=== PATIENT | male | born 1955 ===

== ENCOUNTER 2017-12-15 09:53 | Inpatient (IN) | payer OTHER, MEDICARE ==
[~2017-12-15] VITALS: Ht 162.6 cm; Wt 81.6 kg
[2017-12-22] VITALS (12 sets, daily range): BP systolic 111–144; BP diastolic 70–86
[2017-12-22] MEDS ORDERED: PROGRAF5 MG PO (09:17)
[2017-12-22] MEDS ORDERED: AMLODIPINE BESYL5 MG ORAL (09:17)
[2017-12-22] MEDS ORDERED: ZETIA10 MG ORAL (09:17)
[2017-12-22] MEDS ORDERED: COZAAR50 MG ORAL (09:17)
[2017-12-22] MEDS ORDERED: OMEPRAZOLE20 M3 ORAL (09:17)
[2017-12-22] MEDS ORDERED: TAMSULOSIN HCL0.4 MG ORAL (09:17)
[2017-12-22] MEDS ORDERED: TRAMADOL HCL50 MG ORAL (09:17)
[2017-12-22] MEDS ORDERED: VITAMIN D250000 UNI1 ORAL (09:17)
[2017-12-22] MEDS ORDERED: ALBUTEROL SULF8.5 GM INH (09:17)
--- NOTE | 2017-12-22 10:45 | Diagnostic Imaging Report ---
Indication: Pain Technique: 2 views of the left hip Comparison: none Findings: There is central loss of the joint space. There is subchondral sclerosis and subchondral cysts primarily on the femoral side of the hip joint, although a few subchondral cysts are also seen on the acetabular side. No acute fractures. No dislocations. There is a right hip prosthesis incidentally noted Impression: Degenerative changes, as described No acute process
[2017-12-22] MEDS ORDERED: Bacitracin 50000 Units Vial ONE ×2 (13:27→13:28)
[2017-12-22] MEDS ORDERED: NeoSporin Gu Irrig 1ml Amp IRRIG ONE ×2 (13:27→13:28)
[2017-12-22] MEDS ORDERED: NS Irrig 1000ml ONE (13:30)
[2017-12-22] MEDS ORDERED: Sterile Water Irrig 1000ml IRRIG ONE (13:30)
[2017-12-22] MEDS ORDERED: LR 1000ml ONE (13:30)
[2017-12-22] MEDS ORDERED: Tranexamic Acid 1,000 MG in NS 65 ML IVPB SCH (13:31)
[2017-12-22] MEDS ORDERED: cloNIDine 1000mcg/10ml inj ONE (13:35)
[2017-12-22] MEDS ORDERED: Bupivacaine 0.5% Inj 30 ml vial INJ ONE (13:36)
[2017-12-22] MEDS ORDERED: Lidocaine 1% MPF 10mg/ml 5ml ONE (13:40)
[2017-12-22] MEDS ORDERED: EPINEPHrine 1mg/1ml Amp ONE (13:40)
[2017-12-22] MEDS ORDERED: Dexamethasone 4mg/ml vial ONE (13:40)
[2017-12-22] MEDS ORDERED: Sodium Chloride 10ml vial INJ ONE (13:40)
[2017-12-22] MEDS ORDERED: Propofol 200mg/20ml IV ONE (13:41)
[2017-12-22] MEDS ORDERED: Alfentanil 2ml Inj ONE (13:42)
--- NOTE | 2017-12-22 13:53 | Pre-Procedure Note/Attestation ---
Pre-Procedure Note/Attestation Complete Prior to Procedure Planned Procedure: left Procedure Narrative: left hip replacement Indications for Procedure Pre-Operative Diagnosis: left hip arthritis Attestation I attest that I discussed the nature of the procedure; its benefits; risks and complications; and alternatives (and the risks and benefits of such alternatives ), prior to the procedure, with the patient (or the patient's legal customer account representative). I attest that, if there was a reasonable possibility of needing a blood transfusion, the patient (or the patient's legal customer account representative) was given the [facility] standardized written summary, pursuant to the Florentin Alberto Blood Safety Act ([place] Health and Safety Code # 1645, as amended). I attest that I re-evaluated the patient just prior to the surgery and that there has been no change in the patient's H&P, except as documented below: William Helms MD Dec 22, 2017 13:53
--- NOTE | 2017-12-22 14:07 | Brief Operative Note ---
Immediate Post Operative Note Operative Note Pre-op Diagnosis: left hip arthritis Procedure: left hip oa Post-op Diagnosis: left hip repalcement Post-op Diagnosis: same as pre-op Findings: consistent w/pre-op dx studies Surgeon: leo Anesthesia: general Specimen: yes Complications: none Condition: stable Fluids: y Estimated Blood Loss: none Drains: none Implant(s) used?: Yes William Helms MD Dec 22, 2017 14:07
[2017-12-22] MEDS ORDERED: LR 1000ml 1,000 ML IVLG SCH (14:16)
[2017-12-22] MEDS ORDERED: Meperidine 50mg/ml Inj(FOR RIGORS ONLY) IVP PRN (14:30)
[2017-12-22] MEDS ORDERED: HYDROcodone/Acetamin 7.5/325 tab ORAL PRN (14:30)
[2017-12-22] MEDS ORDERED: Metoclopramide 10mg/2ml Inj IVP PRN (14:30)
[2017-12-22] MEDS ORDERED: DiphenhydrAMINE 50mg/ml Inj IVP PRN (14:30)
[2017-12-22] MEDS ORDERED: Hydromorphone 0.5mg/0.5ml inj IVP PRN (14:30)
[2017-12-22] MEDS ORDERED: Atropine Sulfate 0.4mg/ml inj IVP PRN (14:30)
[2017-12-22] MEDS ORDERED: Midazolam 2mg/2ml Inj IVP PRN (14:30)
[2017-12-22] MEDS ORDERED: oxyCODONE HCL/Acetaminophen 5/325mg ORAL PRN (14:30)
[2017-12-22] MEDS ORDERED: Labetalol 5mg/ml 20ml vial IV PRN (14:30)
[2017-12-22] MEDS ORDERED: Norco 5mg/325mg tab ORAL PRN (14:30)
[2017-12-22] MEDS ORDERED: fentaNYL 100 mcg/2 mL IV PRN (14:30)
[2017-12-22] MEDS ORDERED: LORazepam Inj 2mg/ml 1ml IV PRN (14:30)
--- NOTE | 2017-12-22 14:38 | Anethesia Preoperative Eval ---
Anesthesia Pre-op PMH/ROS General Date of Evaluation: Dec 22, 2017 Time of Evaluation: 13:34 Anesthesiologist: Damaris ASA Score: ASA 3 Mallampati Score Class I : Soft palate, uvula, fauces, pillars visible Class II: Soft palate, uvula, fauces visible Class III: Soft palate, base of uvula visible Class IV: Only hard plate visible Mallampati Classification: Class II Surgeon: Scooter Anesthesia History: none Family History: no anesthesia problems Allergies: Coded Allergies: No Known Allergies (Unverified , 12/10/17) Medications: see eMAR Past Medical History Cardiovascular: Reports: HTN, other - HL Gastrointestinal/Genitourinary: Reports: GERD, CRI - Stage 3, Renal Tx, ESRD, other - Liver Tx Other: obesity - BMI 32 PSxH Narrative: Renal, Liver TX Anesthesia Pre-op Phys. Exam Physician Exam Last Vital Signs Date Time Temp Pulse Resp B/P (MAP) Pulse Ox O2 Delivery O2 Flow Rate FiO2 12/22/17 09:20 Room Air 12/22/17 09:09 98.5 69 18 111/71 (84) 98 98.5 Constitutional: NAD Neurologic: CN 2-12 intact Cardiovascular: RRR Respiratory: CTA Gastrointestinal: S/NT/ND Airway Exam Mallampati Score: Class II MO: full ROM: full Teeth: intact Anesthesia Pre-op A/P Risk Assessment & Plan Assessment: ASA 3 Plan: GA, Spinal, SED Status Change Before Surgery: No Pre-Antibiotics Dru Grams Ancef IV Given Within 1 Hr of Incision: Yes Time Given: 14:01 Bo Ocampo MD Dec 22, 2017 14:38
--- NOTE | 2017-12-22 14:40 | Immediate Post-Op Evaluation ---
Immediate Post-Op Evalulation Immediate Post-Op Evalulation Procedure: L Total Hip Arthroplasty Date of Evaluation: Dec 22, 2017 Time of Evaluation: 16:02 IV Fluids: 1100 LR Blood Products: 0 Estimated Blood Loss: 50 Urinary Output: 0 Blood Pressure Systolic: 143 Blood Pressure Diastolic: 80 Pulse Rate: 64 Respiratory Rate: 16 O2 Sat by Pulse Oximetry: 100 Temperature (Fahrenheit): 97.5 Pain Score (1-10): 0 Nausea: No Vomiting: No Complications 0 Patient Status: awake, reacts, patent, none Hydration Status: adequate Dru Grams Ancef IV Given Within 1 Hr of Incision: Yes Time Given: 14:01 Bo Ocampo MD Dec 22, 2017 14:40
--- NOTE | 2017-12-22 16:28 | Diagnostic Imaging Report ---
Indication: Pain, intraoperative Technique: One view of the pelvis Comparison: 5 1/2 hours earlier Findings: Interim placement of left hip arthroplasty prosthesis. This appears well aligned. Impression: Intraoperative imaging, as described
[2017-12-22] MEDS ORDERED: oxyCODONE 5mg IR tab ORAL PRN (18:15)
[2017-12-22] MEDS ORDERED: Chloraseptic Spray 20mL Bottle ORAL PRN (18:15)
[2017-12-22] MEDS: D5 1/2NS w/KCl 20mEq 1,000 ML IV SCH (18:25)
--- NOTE | 2017-12-22 18:54 | Cardiology Progress Note ---
Assessment/Plan Assessment/Plan [id number] s/p liever tx s/[ kidney tx reanal isnuf stage 3 avn hip htn hyperlitid resume anti rejection med pain management watch urine output Objective Last 24 Hour Vital Signs Date Time Temp Pulse Resp B/P (MAP) Pulse Ox O2 Delivery O2 Flow Rate FiO2 12/22/17 17:00 Nasal Cannula 3.0 12/22/17 16:44 98.2 60 14 144/79 100 Nasal Cannula 3 98.2 12/22/17 16:35 63 18 132/75 100 Nasal Cannula 3 12/22/17 16:20 58 15 134/76 100 Nasal Cannula 3 12/22/17 16:10 57 13 137/70 100 Nasal Cannula 3 12/22/17 16:00 61 17 142/76 100 Nasal Cannula 3 12/22/17 15:55 60 24 144/79 100 Simple Mask 6 12/22/17 15:51 97.5 65 16 143/86 100 Simple Mask 6 97.5 12/22/17 15:51 207.5 64 16 100 12/22/17 09:20 Room Air 12/22/17 09:09 98.5 69 18 111/71 (84) 98 98.5 Kemal Pretty MD Dec 22, 2017 18:54
[2017-12-22] MEDS: HYDROmorphone 1mg/ml Carpuject IVP PRN ×2 (21:17→23:20)
[2017-12-22] MEDS: ceFAZolin sod 1 GM in D5W 55 ML IV SCH (21:20)
[2017-12-22] MEDS: Tamsulosin 0.4mg cap ORAL SCH (21:20)
[2017-12-22] MEDS: traMADol 50mg tab ORAL SCH (22:03)
--- NOTE | 2017-12-22 22:30 | Consultation ---
DATE OF CONSULTATION: 12/22/2017 CONSULTING PHYSICIAN: Manohar Christiansen M.D. REFERRING PHYSICIAN: William Helms M.D. REASON FOR CONSULTATION: Acute pain consult. Dear Dr. Helms, Thank you kindly for consulting me to evaluate and render an opinion as to how to proceed in the management of the patient's acute postoperative left hip pain after left total hip arthroplasty today. The patient is a 62-year-old gentleman, who I saw at the bedside with his and children. I discussed the case with yourself, Dr. Helms, who consulted me to help with his pain control. The patient has multiple medical issues, which will be managed by Dr. Pretty. His medical issues include chronic renal insufficiency and previous liver failure status post liver transplant. I performed detailed history and physical examination. I reviewed the medical record in detail. I spent over 75 minutes in consultation with an additional 30 minutes in medical record review. PAST MEDICAL HISTORY: 1. Acute postoperative left hip pain, status post left total hip arthroplasty by Dr. William Helms in December 2017. 2. Avascular necrosis. 3. Hypertension. 4. Chronic renal insufficiency. 5. Obesity. 6. GERD. PAST SURGICAL HISTORY: Liver transplant. ALLERGIES: No known drug allergies. MEDICATIONS: At home, Norvasc, Zetia, Flonase, Neurontin, Cozaar, CellCept, Prilosec, Zocor, Prograf, prednisone. SOCIAL HISTORY: The patient is accompanied at the bedside by his . He has 4 children. He denies alcohol, tobacco, or marijuana usage. REVIEW OF SYSTEMS: Per Dr. Pretty. PHYSICAL EXAMINATION: VITAL SIGNS: Age 62, height 5 feet 4 inches, weight 181 pounds, body-mass index 31. Vital signs in the medical record. HEENT: Nasal cannula O2 in place. NEUROLOGIC: Oriented x3. Moving all extremities x4. CARDIOPULMONARY: Detailed exam per Dr. Pretty. ABDOMEN: Detailed exam per Dr. Pretty with liver and kidney transplant scars well healed. LABORATORY STUDIES: In the medical record with normal LFT functions, AST, and ALT. Preoperative creatinine was 2.3. A 12-lead EKG shows heart rate 72. IMPRESSION: 1. Acute postoperative left hip pain, status post left total hip arthroplasty by Dr. William Helms in December 2017. 2. Avascular necrosis. 3. Hypertension. 4. Chronic renal insufficiency. 5. Obesity. 6. GERD. I took a detailed history and physical at the patient's bedside and reviewed the medical record. With his history of chronic renal insufficiency and previous liver transplant, the patient is concerned about renal toxic agents. The patient does state that he has been using Neurontin 100 mg b.i.d., which I will restart. The patient also has been using tramadol although this medication has been poorly effective for pain, apparently it is tolerable with his hepatorenal problems, so I will start him on tramadol 50 mg [id number] for baseline analgesia. I have selected agents that will be metabolized by the liver since he has more kidney dysfunction, versus liver dysfunction. I have chosen oxycodone. I will start with instant-release dosing 5 mg. This agent will avoid using acetaminophen. I will see how the 5 mg dose works on a p.r.n. basis every 3 hours p.r.n. for mild pain. I have ordered and I will start with a low dose of Dilaudid. Dilaudid is hepatically metabolized versus morphine which is metabolized predominantly by the kidneys. I will start with Dilaudid dose of 0.5 mg intravenously every two hours p.r.n. for moderate pain. I would hold off on other doses at this time. I will defer anticoagulation and other medical illness issues to Dr. Pretty in this complicated patient. Incentive spirometer is placed at the bedside and I will encourage aggressive usage. The patient is well experienced in incentive spirometer usage due to his multiple previous surgeries. Manohar Christiansen M.D. DR: Omari JOB#: [id number] CC:
[2017-12-23] VITALS: BP 136/72
[2017-12-23] MEDS: HYDROmorphone 1mg/ml Carpuject IVP PRN (01:47)
[2017-12-23] MEDS ORDERED: oxyCODONE 5mg IR tab ORAL PRN (02:45)
--- NOTE | 2017-12-23 03:30 | Consultation ---
DATE OF CONSULTATION: 12/22/2017 CARDIOLOGY CONSULTATION CONSULTING PHYSICIAN: Kemal Pretty M.D. REFERRING PHYSICIAN: William Helms M.D. REASON FOR REFERRAL: Postoperative medical care. HISTORY OF PRESENT ILLNESS: This is an elderly gentleman who I saw for the first time in the office on Wednesday for preoperative cardiac consultation. The patient has a history of liver and kidney transplant, is followed by Dr. Bernice Asher who has recently adjusted the dose of his medications at [facility]. The patient is admitted and underwent hip replacement by Dr. Deras today and his postoperative course so far has been intact, although he was not able to get a Jerez catheter in because of the narrow meatus as I understand it. The patient has arrived in the floor in the past hour and half or so from both the nurses. Intraoperative data was reviewed. The patient's blood pressure lowest is in the mid 90s and the highest in the 140s or so with diastolic in the mid 50s to highest of low 80s. The patient denies any chest pain or pressure. There is no shortness of breath. No PND. No orthopnea. He does have symptom of sore throat. No palpitations and no dizziness at this time. PAST MEDICAL HISTORY: Positive for history of pulmonic stenosis in 2006 and he has had a history of right heart cath. After that, he has history of liver transplant. He has history of systemic hypertension, early satiety, and chronic kidney disease, stage 3 after a renal transplant, he has donor kidney transplantation with now stage 3 chronic kidney disease. ALLERGIES: He is not allergic to any medications. FAMILY HISTORY: Questionable for premature coronary disease. SOCIAL HISTORY: Never smoked. No alcohol. No drugs. He is , four kids. Worked as a ms sql developer. REVIEW OF SYSTEMS: GASTROINTESTINAL: Denies any nausea or vomiting. GENITOURINARY: He does not have a Jerez catheter. No discomfort on urination. PULMONARY: Negative. CONSTITUTIONAL: Negative. NEUROLOGIC: He has some numbness and tingling sensation in his left leg. PHYSICAL EXAMINATION: GENERAL: Shows to be elderly gentleman, in no respiratory distress. HEENT: Unremarkable. NECK: Supple. No jugular venous distention. He is able to lay flat, approximately 10 degrees head of bed elevation without any discomfort. LUNGS: Appear to be clear. CARDIAC: Regular rate and rhythm. Systolic murmur is noted. No heaves, thrills, gallops or rubs are noted. ABDOMEN: Soft and nontender. Positive bowel sounds. EXTREMITIES: He has pneumatic compression stockings on both sides. His right foot seems to be moving okay. He is weaker, but is able to move, he just recovered from anesthesia. LABORATORY AND DIAGNOSTIC DATA: His laboratory values of preoperative are as mentioned in the preoperative section with his INR of 1. Sodium 138, potassium 4.6, chloride 107, bicarbonate 21, BUN of 37, and creatinine 2.3 and his white count 6.3, hemoglobin 12.2, and platelet count of 166. Prograf level of 2.9. Urinalysis, 2+ leukocyte esterase, otherwise unremarkable. The patient was seen and medically cleared by his bow repairer custom in transplant service at [facility] recently with adjustment of his medications as noted. His preoperative EKG previously showed somewhat sinus rhythm. No ST or T-wave abnormalities. He did have an echocardiogram in the office that showed a pulmonic valve stenosis. The ejection fraction of left ventricle was 60%-65%. Right ventricular systolic pressure was estimated at 31 with the pulmonary artery systolic pressure estimated 11 mmHg. His recent myocardial perfusion imaging that was done yesterday was negative at [facility] and his chest x-ray was also negative preoperatively. ASSESSMENT AND PLAN: 1. Status post left total hip replacement. 2. Pulmonic stenosis, mild, unaffected of the right ventricle. 3. History of renal transplantation, now with residual stage 3 kidney failure. 4. History of liver transplant for cryptogenic cirrhosis. 5. Avascular necrosis of the left hip, now undergone hip replacement. 6. Hypertension. 7. Hyperlipidemia. Dr. Deras, this patient was seen in cardiac consultation. Postoperatively, he is doing well. He had an issue with the inability to have a Jerez catheter placed. His postvoid residuals will need to be checked. Hopefully, he would be able to urinate and not have much in terms of issues with that. He will be monitored in postoperative care. Pain management has seen the patient, and usual medications for transplant will be resumed. Prograf as well as CellCept will be resumed. I did discuss with the promotions coordinator, nephrology clinic this evening. No excessive measures of medications need to be undertaken, his usual medications will be resumed. His blood pressure needs to be followed and his medications will be administered based on the blood pressure readings to avoid hypotension. DVT prophylaxis with the use of pneumatic compression stockings and low-molecular weight heparin as approved by Dr. Deras. He has already received and started his diet already and out of bed allowed by Dr. Deras as well. Kemal Pretty M.D. DR: LAVERN JOB#: [id number] CC:
[2017-12-23] MEDS: HYDROmorphone 1mg/ml Carpuject SUBQ PRN ×3 (03:59→10:30)
[2017-12-23 04:00] VITALS: BP 126/73
[2017-12-23] MEDS: traMADol 50mg tab ORAL SCH ×3 (06:02→21:15)
[2017-12-23] MEDS: ceFAZolin sod 1 GM in D5W 55 ML IV SCH (06:03)
[2017-12-23 08:00] VITALS: BP 122/71
[2017-12-23] MEDS: Losartan 50mg tab ORAL SCH (08:16)
[2017-12-23] MEDS: Mycophenolate 250mg cap ORAL SCH ×2 (08:17→18:01)
[2017-12-23] MEDS: Paricalcitol 1mcg cap ORAL SCH (08:17)
[2017-12-23] MEDS: D5 1/2NS w/KCl 20mEq 1,000 ML IV SCH ×2 (08:18→21:16)
--- NOTE | 2017-12-23 08:29 | Diagnostic Imaging Report ---
Indication: Postoperative, status post bilateral hip replacement Technique: One view of the pelvis Comparison: One hour earlier Findings: Patient is postoperative left hip hemiarthroplasty, with overlying skin amina. Retained air from the surgical wound is seen within the soft tissues. Prosthesis appears well aligned. There is a right prosthesis again demonstrated Impression: Postoperative left hip, as described. No unusual features
[2017-12-23 09:33] LABS: BASOPHILS % (AUTO) 0.5 % (0.0-2.0); EOSINOPHILS % (AUTO) 0.1 % (0.0-3.0); HEMATOCRIT 35.4 % (42.0-52.0); HEMOGLOBIN 11.9 G/DL (14.2-18.0); LYMPHOCYTES % (AUTO) 10.3 % (20.0-45.0); MEAN CORPUSCULAR VOLUME 92 FL (80-99); MONOCYTES % (AUTO) 7.3 % (1.0-10.0); NEUTROPHILS % (AUTO) 81.8 % (45.0-75.0); PLATELET COUNT 239 K/UL (150-450); RED BLOOD COUNT 3.85 M/UL (4.70-6.10); RED CELL DISTRIBUTION WIDTH 12.4 % (11.6-14.8); WHITE BLOOD COUNT 14.8 K/UL (4.8-10.8)
[2017-12-23 09:56] LABS: ANION GAP 14 mmol/L (5-15); BLOOD UREA NITROGEN 39 mg/dL (7-18); CALCIUM 8.9 MG/DL (8.5-10.1); CARBON DIOXIDE 18 MMOL/L (21-32); CHLORIDE 105 MMOL/L (98-107); CREATININE 2.4 MG/DL (0.55-1.30); POTASSIUM 4.7 MMOL/L (3.5-5.1); SODIUM 137 MMOL/L (136-145)
[2017-12-23] MEDS ORDERED: HYDROmorphone 1mg/ml Carpuject SUBQ PRN (10:45)
[2017-12-23] MEDS ORDERED: [UNRECOGNIZED DRUG - OTHER] IV PRN (10:45)
[2017-12-23] MEDS ORDERED: PCA Education Pamphlet MISC ONE (10:45)
[2017-12-23] MEDS: Enoxaparin 40mg Inj SUBQ SCH (11:29)
[2017-12-23 12:00] VITALS: BP 137/72
--- NOTE | 2017-12-23 12:52 | 48 Hour Post Anesthesia Eval ---
Post Anesthesia Evaluation Procedure: L Total Hip Arthroplasty Date of Evaluation: Dec 23, 2017 Time of Evaluation: 12:51 Blood Pressure Systolic: 124 0: 76 Pulse Rate: 68 Respiratory Rate: 20 Temperature (Fahrenheit): 97.5 O2 Sat by Pulse Oximetry: 98 Airway: patent Nausea: No Vomiting: No Pain Intensity: 3 Hydration Status: adequate Cardiopulmonary Status: stable Mental Status/LOC: patient returned to baseline Follow-up Care/Observations: n/a Post-Anesthesia Complications: none Follow-up care needed: N/A Zaheer Peacock MD Dec 23, 2017 12:52
[2017-12-23 16:00] VITALS: BP 109/65
--- NOTE | 2017-12-23 18:48 | Cardiology Progress Note ---
Assessment/Plan Assessment/Plan 1. Status post left total hip replacement. 2. Pulmonic stenosis, mild, unaffected right ventricle. 3. History of renal transplantation, now with residual stage 3 kidney failure. 4. History of liver transplant for cryptogenic cirrhosis. 5. Avascular necrosis of the left hip, now undergone hip replacement. 6. Hypertension. 7. Hyperlipidemia doing well walked on antirejection med s bp seem fine dvt ppx lmwh home soon . Subjective Cardiovascular: Denies: chest pain, lightheadedness, palpitations Respiratory: Denies: shortness of breath Gastrointestinal/Abdominal: Denies: abdominal pain Genitourinary: Denies: burning Objective Last 24 Hour Vital Signs Date Time Temp Pulse Resp B/P (MAP) Pulse Ox O2 Delivery O2 Flow Rate FiO2 12/23/17 14:36 97.5 12/23/17 12:52 207.5 68 20 98 12/23/17 11:55 97.5 12/23/17 11:55 97.5 12/23/17 11:25 97.7 12/23/17 10:30 97.7 12/23/17 09:00 Room Air 12/23/17 08:48 97.7 12/23/17 08:18 97.7 12/23/17 08:17 83 122/71 12/23/17 08:16 122/71 12/23/17 08:00 97.1 83 20 122/71 (88) 98 97.1 12/23/17 04:00 97.7 80 18 126/73 (90) 97 97.7 12/23/17 00:00 98.2 81 18 136/72 (93) 98 98.2 12/22/17 21:00 Nasal Cannula 3.0 12/22/17 20:00 98.2 77 18 125/72 (89) 100 98.2 General Appearance: alert Neck: supple Cardiovascular: normal rate, regular rhythm Respiratory/Chest: lungs clear, normal breath sounds Abdomen: normal bowel sounds, non tender, soft Extremities: no swelling Intake and Output 12/22/17 12/23/17 19:00 07:00 Intake Total 1500 ml 1247.5 ml Output Total 50 ml 800 ml Balance 1450 ml 447.5 ml Intake Oral 300 ml 200 ml IV Total 1200 ml 1047.5 ml Output Urine Total 800 ml Estimated Blood Loss 50 ml # Voids 1 Laboratory Tests Test 12/23/17 09:20 White Blood Count 14.8 K/UL (4.8-10.8) H Red Blood Count 3.85 M/UL (4.70-6.10) L Hemoglobin 11.9 G/DL (14.2-18.0) L Hematocrit 35.4 % (42.0-52.0) L Mean Corpuscular Volume 92 FL (80-99) Mean Corpuscular Hemoglobin 30.9 PG (27.0-31.0) Mean Corpuscular Hemoglobin Concent 33.7 G/DL (32.0-36.0) Red Cell Distribution Width 12.4 % (11.6-14.8) Platelet Count 239 K/UL (150-450) Mean Platelet Volume 4.9 FL (6.5-10.1) L Neutrophils (%) (Auto) 81.8 % (45.0-75.0) H Lymphocytes (%) (Auto) 10.3 % (20.0-45.0) L Monocytes (%) (Auto) 7.3 % (1.0-10.0) Eosinophils (%) (Auto) 0.1 % (0.0-3.0) Basophils (%) (Auto) 0.5 % (0.0-2.0) Sodium Level 137 MMOL/L (136-145) Potassium Level 4.7 MMOL/L (3.5-5.1) Chloride Level 105 MMOL/L (98-107) Carbon Dioxide Level 18 MMOL/L (21-32) L Anion Gap 14 mmol/L (5-15) Blood Urea Nitrogen 39 mg/dL (7-18) H Creatinine 2.4 MG/DL (0.55-1.30) H Estimat Glomerular Filtration Rate 27.8 mL/min (>60) Glucose Level 136 MG/DL (74-106) H Calcium Level 8.9 MG/DL (8.5-10.1) Kemal Pretty MD Dec 23, 2017 18:48
[2017-12-23] MEDS: PCA shift volume MISC SCH (19:14)
[2017-12-23 20:00] VITALS: BP 126/72
[2017-12-23] MEDS: ceFAZolin 1gm in D5W 55ml IVPB SCH (21:08)
[2017-12-23] MEDS: Tamsulosin 0.4mg cap ORAL SCH (21:16)
[2017-12-24] VITALS (8 sets, daily range): BP systolic 130–144; BP diastolic 70–85
[2017-12-24] MEDS: traMADol 50mg tab ORAL SCH ×3 (05:11→21:15)
[2017-12-24 06:06] LABS: BASOPHILS % (AUTO) 0.7 % (0.0-2.0); EOSINOPHILS % (AUTO) 1.9 % (0.0-3.0); HEMATOCRIT 32.7 % (42.0-52.0); HEMOGLOBIN 10.9 G/DL (14.2-18.0); LYMPHOCYTES % (AUTO) 22.7 % (20.0-45.0); MEAN CORPUSCULAR VOLUME 93 FL (80-99); MONOCYTES % (AUTO) 7.3 % (1.0-10.0); NEUTROPHILS % (AUTO) 67.4 % (45.0-75.0); PLATELET COUNT 176 K/UL (150-450); RED BLOOD COUNT 3.52 M/UL (4.70-6.10); RED CELL DISTRIBUTION WIDTH 12.7 % (11.6-14.8); WHITE BLOOD COUNT 8.3 K/UL (4.8-10.8)
[2017-12-24 06:25] LABS: ANION GAP 10 mmol/L (5-15); BLOOD UREA NITROGEN 38 mg/dL (7-18); CALCIUM 8.4 MG/DL (8.5-10.1); CARBON DIOXIDE 21 MMOL/L (21-32); CHLORIDE 105 MMOL/L (98-107); CREATININE 2.1 MG/DL (0.55-1.30); POTASSIUM 4.2 MMOL/L (3.5-5.1); SODIUM 136 MMOL/L (136-145)
[2017-12-24] MEDS: PCA shift volume MISC SCH ×2 (07:00→19:19)
[2017-12-24] MEDS: Paricalcitol 1mcg cap ORAL SCH (08:35)
[2017-12-24] MEDS: Losartan 50mg tab ORAL SCH (08:36)
[2017-12-24] MEDS: Enoxaparin 40mg Inj SUBQ SCH (08:42)
[2017-12-24] MEDS: Mycophenolate 250mg cap ORAL SCH ×2 (08:49→17:58)
[2017-12-24] MEDS ORDERED: Rate Change PCA 1 Each MISC PRN (09:00)
[2017-12-24] MEDS: ceFAZolin 1gm in D5W 55ml IVPB SCH ×2 (09:09→21:13)
[2017-12-24] MEDS: D5 1/2NS w/KCl 20mEq 1,000 ML IV SCH (09:57)
--- NOTE | 2017-12-24 11:30 | Progress Note ---
DATE: 12/24/2017 ACUTE PAIN MANAGEMENT PHYSICIAN PROGRESS NOTE LABORATORY STUDIES: From this morning, December 24, 2017, shows white count 8, hematocrit 33, platelets 176,000. Sodium 136, potassium 4.2, chloride 105, bicarbonate 21, BUN 38, creatinine 2.1, improved from yesterday of 2.4. Glucose 125. Calcium 8.4. MEDICATIONS: Medication administration record reviewed. Medications include Dilaudid IRON GUARDRAIL INSTALLER, IV fluids, Prograf, CellCept, Zetia, Flomax, Neurontin, Lovenox, Norvasc, Cozaar, Zemplar, prednisone, tramadol, and antibiotics. P.r.n. medications include Chloraseptic spray, Zofran, Benadryl, Mylanta, oxycodone, Dilaudid. VITAL SIGNS: Pain level 5/10 on the visual analog pain scale. Afebrile, pulse 87, respiration 19, blood pressure 130/81, oxygen saturation 95%. I saw the patient at the bedside with his daughter. I discussed the case with the charge nurse, TONY Babcock, along with the hospital pharmacist, Gisela, and physical therapist, Dr. Mcdermott. After the patient was having significant pains which were breakthrough'ing the p.r.n. Dilaudid and oxycodone doses, I initiated Dilaudid IRON GUARDRAIL INSTALLER unit. The patient has been using the IRON GUARDRAIL INSTALLER for good effect and with time and healing, the patient has been able to begin to decrease his Dilaudid IRON GUARDRAIL INSTALLER usage. I will discontinue the IRON GUARDRAIL INSTALLER later today and the patient agrees that he will go back to p.r.n. medications of oral oxycodone and subcutaneous Dilaudid. I did explain to the daughter and the patient, that because of the patient's chronic renal insufficiency and his history of liver failure, that we will try to avoid using excessive Tylenol dosing. She did ask if we will be using [place] and I stated that because of the Tylenol, I did recommend oxycodone instant release, which did not contain Tylenol. I did provide the daughter a prescription for instant-release oxycodone #60 tablets along with a prescription for tramadol which should perform well in the short-term for this patient's chronic hepatic and renal problems. The patient's creatinine has improved this morning while the patient has been on scheduled tramadol, so it seemed that the tramadol and the oxycodone do not have any adverse side effects from the hepatic or renal standpoint. I reviewed medications with the pharmacy. Dr. Pretty is following the patient's multiple medical issues. The patient will continue ambulating with physical therapy as tolerated. Manohar Christiansen M.D. DR: Omari JOB#: [id number] CC:
--- NOTE | 2017-12-24 17:20 | Cardiology Progress Note ---
Assessment/Plan Assessment/Plan 1. Status post left total hip replacement. 2. Pulmonic stenosis, mild, unaffected right ventricle. 3. History of renal transplantation, now with residual stage 3 kidney failure. 4. History of liver transplant for cryptogenic cirrhosis. 5. Avascular necrosis of the left hip, now undergone hip replacement. 6. Hypertension. 7. Hyperlipidemia 8. Nause / vomittign vomitted several times today like related to narcotic as well s constipation dulcolox supposit walked on antirejection meds bp seem fine ivf unitl po intake adequate dvt ppx lmwh labs ntoed cr better hgb little lower antiemetic Subjective Cardiovascular: Denies: chest pain, lightheadedness Respiratory: Denies: shortness of breath Gastrointestinal/Abdominal: Denies: abdominal pain Genitourinary: Denies: burning Objective Last 24 Hour Vital Signs Date Time Temp Pulse Resp B/P (MAP) Pulse Ox O2 Delivery O2 Flow Rate FiO2 12/24/17 16:04 98.1 88 20 134/82 (99) 96 98.1 12/24/17 14:19 99.2 12/24/17 13:49 99.2 12/24/17 12:00 18 12/24/17 11:42 99.2 90 20 144/84 (104) 96 99.2 12/24/17 09:00 Room Air 12/24/17 08:36 130/81 12/24/17 08:35 87 130/81 12/24/17 08:05 97.9 87 19 130/81 (97) 95 97.9 12/24/17 08:00 18 12/24/17 05:41 97.4 12/24/17 05:11 97.4 12/24/17 04:03 98.1 82 17 130/70 (90) 95 98.1 12/24/17 04:00 20 12/24/17 00:00 97.4 83 18 132/85 (101) 96 97.4 12/24/17 00:00 20 12/23/17 21:15 97.8 12/23/17 21:00 Room Air 12/23/17 20:00 97.9 82 20 126/72 (90) 96 97.9 12/23/17 20:00 20 12/23/17 19:54 20 General Appearance: no apparent distress, alert Neck: supple Cardiovascular: normal rate Respiratory/Chest: lungs clear, normal breath sounds Abdomen: normal bowel sounds, non tender, soft Extremities: no swelling Intake and Output 12/23/17 12/24/17 19:00 07:00 Intake Total 1575 ml 1768 ml Output Total 1101 ml Balance 1575 ml 667 ml Intake Oral 600 ml 800 ml IV Total 975 ml 968 ml Output Urine Total 1100 ml Emesis 1 ml # Voids 3 Laboratory Tests Test 12/24/17 05:35 White Blood Count 8.3 K/UL (4.8-10.8) Red Blood Count 3.52 M/UL (4.70-6.10) L Hemoglobin 10.9 G/DL (14.2-18.0) L Hematocrit 32.7 % (42.0-52.0) L Mean Corpuscular Volume 93 FL (80-99) Mean Corpuscular Hemoglobin 30.9 PG (27.0-31.0) Mean Corpuscular Hemoglobin Concent 33.3 G/DL (32.0-36.0) Red Cell Distribution Width 12.7 % (11.6-14.8) Platelet Count 176 K/UL (150-450) Mean Platelet Volume 5.0 FL (6.5-10.1) L Neutrophils (%) (Auto) 67.4 % (45.0-75.0) Lymphocytes (%) (Auto) 22.7 % (20.0-45.0) Monocytes (%) (Auto) 7.3 % (1.0-10.0) Eosinophils (%) (Auto) 1.9 % (0.0-3.0) Basophils (%) (Auto) 0.7 % (0.0-2.0) Sodium Level 136 MMOL/L (136-145) Potassium Level 4.2 MMOL/L (3.5-5.1) Chloride Level 105 MMOL/L (98-107) Carbon Dioxide Level 21 MMOL/L (21-32) Anion Gap 10 mmol/L (5-15) Blood Urea Nitrogen 38 mg/dL (7-18) H Creatinine 2.1 MG/DL (0.55-1.30) H Estimat Glomerular Filtration Rate 32.4 mL/min (>60) Glucose Level 125 MG/DL (74-106) H Calcium Level 8.4 MG/DL (8.5-10.1) L Kemal Pretty MD Dec 24, 2017 17:20
[2017-12-24] MEDS ORDERED: CELLCEPT200 MG/1 M PO (18:09)
[2017-12-24] MEDS ORDERED: PCA shift volume MISC SCH (19:00)
[2017-12-24] MEDS: Tamsulosin 0.4mg cap ORAL SCH (21:14)
[2017-12-25] VITALS (7 sets, daily range): BP systolic 116–139; BP diastolic 68–83
[2017-12-25] MEDS: traMADol 50mg tab ORAL SCH ×3 (05:49→21:01)
[2017-12-25 07:06] LABS: BASOPHILS % (AUTO) 1.1 % (0.0-2.0); HEMATOCRIT 31.3 % (42.0-52.0); HEMOGLOBIN 10.4 G/DL (14.2-18.0); LYMPHOCYTES % (AUTO) 22.2 % (20.0-45.0); MEAN CORPUSCULAR VOLUME 92 FL (80-99); MONOCYTES % (AUTO) 10.7 % (1.0-10.0); NEUTROPHILS % (AUTO) 64.1 % (45.0-75.0); PLATELET COUNT 150 K/UL (150-450); RED BLOOD COUNT 3.39 M/UL (4.70-6.10); RED CELL DISTRIBUTION WIDTH 12.5 % (11.6-14.8); WHITE BLOOD COUNT 7.5 K/UL (4.8-10.8)
[2017-12-25 07:29] LABS: ALANINE AMINOTRANSFERASE 20 U/L (12-78); ALBUMIN/GLOBULIN RATIO 0.9 (1.0-2.7); ALKALINE PHOSPHATASE 90 U/L (46-116); ANION GAP 11 mmol/L (5-15); ASPARTATE AMINO TRANSFERASE 26 U/L (15-37); BILIRUBIN,TOTAL 0.7 MG/DL (0.2-1.0); BLOOD UREA NITROGEN 32 mg/dL (7-18); CALCIUM 8.4 MG/DL (8.5-10.1); CARBON DIOXIDE 23 MMOL/L (21-32); CHLORIDE 103 MMOL/L (98-107); CREATININE 2.1 MG/DL (0.55-1.30); POTASSIUM 4.3 MMOL/L (3.5-5.1); SODIUM 137 MMOL/L (136-145)
[2017-12-25] MEDS: Enoxaparin 40mg Inj SUBQ SCH (08:42)
[2017-12-25] MEDS: Mycophenolate 250mg cap ORAL SCH ×4 (08:44→18:32)
[2017-12-25] MEDS: oxyCODONE 5mg IR tab ORAL PRN (08:47)
[2017-12-25] MEDS: Paricalcitol 1mcg cap ORAL SCH (08:48)
[2017-12-25] MEDS: Losartan 50mg tab ORAL SCH (08:48)
[2017-12-25] MEDS: ceFAZolin 1gm in D5W 55ml IVPB SCH ×2 (08:53→21:01)
--- NOTE | 2017-12-25 13:38 | Cardiology Progress Note ---
Assessment/Plan Assessment/Plan 1. Status post left total hip replacement. 2. Pulmonic stenosis, mild, unaffected right ventricle. 3. History of renal transplantation, now with residual stage 3 kidney failure. 4. History of liver transplant for cryptogenic cirrhosis. 5. Avascular necrosis of the left hip, now undergone hip replacement. 6. Hypertension. 7. Hyperlipidemia 8. Nausea / vomiting vomited several times today like related to narcotic as well s constipation dulcolox suppose walked on antirejection meds bp seem fine ivf units po intake adequate dvt ppx lmwh labs noted cr better hgb little lower antiemetic Subjective Cardiovascular: Denies: chest pain, lightheadedness, palpitations Respiratory: Denies: shortness of breath Gastrointestinal/Abdominal: Denies: abdominal pain, nausea Genitourinary: Denies: burning Objective Last 24 Hour Vital Signs Date Time Temp Pulse Resp B/P (MAP) Pulse Ox O2 Delivery O2 Flow Rate FiO2 12/25/17 12:00 98.1 88 20 116/77 (90) 97 98.1 12/25/17 09:00 Room Air 12/25/17 08:48 127/78 12/25/17 08:46 99 127/78 12/25/17 08:02 98.5 99 18 127/78 (94) 97 98.5 12/25/17 04:00 98.1 86 17 139/83 (101) 97 98.1 12/25/17 00:00 98.9 90 18 136/83 (100) 97 98.9 12/24/17 21:00 Room Air 12/24/17 20:00 18 12/24/17 20:00 99.0 85 19 135/80 (98) 96 99.0 12/24/17 16:04 98.1 88 20 134/82 (99) 96 98.1 12/24/17 16:00 18 12/24/17 14:19 99.2 12/24/17 13:49 99.2 General Appearance: alert Neck: supple Cardiovascular: normal rate, regular rhythm Respiratory/Chest: lungs clear, normal breath sounds Abdomen: normal bowel sounds, non tender, soft Extremities: no swelling Intake and Output 12/24/17 12/25/17 19:00 07:00 Intake Total 1340 ml 950 ml Output Total 600 ml 500 ml Balance 740 ml 450 ml Intake Oral 1140 ml 320 ml IV Total 200 ml 630 ml Output Urine Total 600 ml 500 ml # Voids 6 2 # Bowel Movements 1 Laboratory Tests Test 12/25/17 06:20 White Blood Count 7.5 K/UL (4.8-10.8) Red Blood Count 3.39 M/UL (4.70-6.10) L Hemoglobin 10.4 G/DL (14.2-18.0) L Hematocrit 31.3 % (42.0-52.0) L Mean Corpuscular Volume 92 FL (80-99) Mean Corpuscular Hemoglobin 30.8 PG (27.0-31.0) Mean Corpuscular Hemoglobin Concent 33.4 G/DL (32.0-36.0) Red Cell Distribution Width 12.5 % (11.6-14.8) Platelet Count 150 K/UL (150-450) Mean Platelet Volume 5.2 FL (6.5-10.1) L Neutrophils (%) (Auto) 64.1 % (45.0-75.0) Lymphocytes (%) (Auto) 22.2 % (20.0-45.0) Monocytes (%) (Auto) 10.7 % (1.0-10.0) H Eosinophils (%) (Auto) 2.0 % (0.0-3.0) Basophils (%) (Auto) 1.1 % (0.0-2.0) Sodium Level 137 MMOL/L (136-145) Potassium Level 4.3 MMOL/L (3.5-5.1) Chloride Level 103 MMOL/L (98-107) Carbon Dioxide Level 23 MMOL/L (21-32) Anion Gap 11 mmol/L (5-15) Blood Urea Nitrogen 32 mg/dL (7-18) H Creatinine 2.1 MG/DL (0.55-1.30) H Estimat Glomerular Filtration Rate 32.4 mL/min (>60) Glucose Level 107 MG/DL (74-106) H Calcium Level 8.4 MG/DL (8.5-10.1) L Total Bilirubin 0.7 MG/DL (0.2-1.0) Aspartate Amino Transf (AST/SGOT) 26 U/L (15-37) Alanine Aminotransferase (ALT/SGPT) 20 U/L (12-78) Alkaline Phosphatase 90 U/L (46-116) Total Protein 6.4 G/DL (6.4-8.2) Albumin 3.0 G/DL (3.4-5.0) L Globulin 3.4 g/dL Albumin/Globulin Ratio 0.9 (1.0-2.7) L Lipase 111 U/L (73-393) Kemal Pretty MD Dec 25, 2017 13:38
[2017-12-25] MEDS: Tamsulosin 0.4mg cap ORAL SCH (21:00)
[2017-12-26] MEDS: HYDROmorphone 1mg/ml Carpuject SUBQ PRN ×3 (02:44→19:48)
[2017-12-26 04:00] VITALS: BP 129/62
[2017-12-26] MEDS: traMADol 50mg tab ORAL SCH ×3 (05:38→22:11)
[2017-12-26 08:00] VITALS: BP 126/77
[2017-12-26] MEDS: Paricalcitol 1mcg cap ORAL SCH (09:32)
[2017-12-26] MEDS: Mycophenolate 250mg cap ORAL SCH ×2 (09:34→17:08)
[2017-12-26] MEDS: Losartan 50mg tab ORAL SCH (09:35)
[2017-12-26] MEDS: ceFAZolin 1gm in D5W 55ml IVPB SCH ×2 (09:35→20:38)
[2017-12-26] MEDS: Enoxaparin 40mg Inj SUBQ SCH (09:37)
[2017-12-26 12:00] VITALS: BP 127/69
--- NOTE | 2017-12-26 13:15 | Cardiology Progress Note ---
Assessment/Plan Assessment/Plan 1. Status post left total hip replacement. 2. Pulmonic stenosis, mild, unaffected right ventricle. 3. History of renal transplantation, now with residual stage 3 kidney failure. 4. History of liver transplant for cryptogenic cirrhosis. 5. Avascular necrosis of the left hip, now undergone hip replacement. 6. Hypertension. 7. Hyperlipidemia 8. Nausea / vomiting doign well walked on anti rejection meds bp seem fine not febrile dvt ppx lmwh for 10 day total seems to doign well paossible dc later toa dy if ok with dr dorman Subjective Cardiovascular: Denies: chest pain, lightheadedness, palpitations Respiratory: Denies: shortness of breath, SOB with excertion Gastrointestinal/Abdominal: Denies: abdominal pain, constipated Genitourinary: Denies: burning Objective Last 24 Hour Vital Signs Date Time Temp Pulse Resp B/P (MAP) Pulse Ox O2 Delivery O2 Flow Rate FiO2 12/26/17 12:00 97.3 78 19 127/69 (88) 96 97.3 12/26/17 11:48 97.2 12/26/17 11:18 97.2 12/26/17 09:35 126/77 12/26/17 09:33 94 126/77 12/26/17 09:00 Room Air 12/26/17 08:00 97.2 94 18 126/77 (93) 94 97.2 12/26/17 04:00 98.1 79 17 129/62 (84) 96 98.1 12/25/17 23:25 97.2 76 18 126/68 (87) 98 97.2 12/25/17 21:00 Room Air 12/25/17 20:00 99.2 76 18 118/74 (89) 96 99.2 12/25/17 16:00 97.8 82 19 130/79 (96) 99 97.8 Intake and Output 12/25/17 12/26/17 19:00 07:00 Intake Total 750 ml Output Total 450 ml Balance 750 ml -450 ml Intake Oral 500 ml IV Total 250 ml Output Urine Total 450 ml # Voids 3 2 Kemal Pretty MD Dec 26, 2017 13:15
[2017-12-26 15:33] VITALS: BP 111/68
--- NOTE | 2017-12-26 18:31 | General Progress Note ---
Progress Note Progress Note doing great neueraovascular intact leg lenghts equal xrays perfect ambulating continue therapy William Helms MD Dec 26, 2017 18:31
[2017-12-26 19:57] VITALS: BP 114/75
[2017-12-26] MEDS: Tamsulosin 0.4mg cap ORAL SCH (20:37)
--- NOTE | 2017-12-26 23:45 | Operative Note - Dictated ---
DATE OF OPERATION: 12/22/2017 PREOPERATIVE DIAGNOSIS: Left hip avascular necrosis with collapse. POSTOPERATIVE DIAGNOSIS: Left hip avascular necrosis with collapse. PROCEDURE: Left total hip replacement. SURGEON: William Helms M.D. ELECTRICAL LINEWORKER: Bo Ocampo M.D. LUBRICATING SPECIALIST: None. PREOP NOTE: This is a pleasant gentleman, who has been having issues with his hip. It has been affecting his activities of daily living. I explained to him the surgery and risks being infection, bleeding, anesthetic risks, neurovascular damage, DVT, PE, and failure of the operation. The patient agreed. Consents were obtained. OPERATIVE NOTE: Under the benefit of endotracheal intubation and general anesthetic, the patient's hip was prepped and then draped in an appropriate manner. I proceeded to make a posterior lateral incision, incised through subcutaneous tissue down through muscle. I then proceeded to dislocate the hip after releasing the capsule. I made an osteotomy a fingerbreadth above the lesser trochanter and I proceeded to start reaming the acetabulum starting with a 44 up to a 51 accepting to 52. I placed a 52 cup in with 40 degrees of vertical inclination and 15 degrees of anteversion. I then started working on the stem, we broached the stem up to the size that was press fit, placed that appropriate stem in. Measured the leg lengths in multiple different ways, which appeared to be equal with realms to the fact that he was shorter on this side due to being abnormally long from his opposite hip. I was very pleased. I then placed the actual stem in with a ceramic head. The patient tolerated this well. There were no complications. I irrigated the wound copiously. The hip was stable in full range of motion. Closed the glutes with #1 Vicryl, subcutaneous tissue with 2-0 Vicryl, and skin with amina. There was minimal bleeding. The patient went to recovery room in stable condition. William Helms M.D. DR: DEBBY JOB#: [id number] CC: RACHEL
[2017-12-27] VITALS: BP 111/71
[2017-12-27] MEDS: oxyCODONE 5mg IR tab ORAL PRN ×4 (00:23→20:44)
[2017-12-27 04:00] VITALS: BP 136/71
[2017-12-27] MEDS: traMADol 50mg tab ORAL SCH ×2 (05:42→14:20)
[2017-12-27 08:00] VITALS: BP 127/72
[2017-12-27] MEDS: ceFAZolin 1gm in D5W 55ml IVPB SCH (09:23)
[2017-12-27] MEDS: Losartan 50mg tab ORAL SCH (09:24)
[2017-12-27] MEDS: Mycophenolate 250mg cap ORAL SCH ×2 (09:24→17:52)
[2017-12-27] MEDS: Paricalcitol 1mcg cap ORAL SCH (09:24)
[2017-12-27] MEDS: Enoxaparin 40mg Inj SUBQ SCH (09:26)
[2017-12-27 12:00] VITALS: BP 112/68
[2017-12-27 16:00] VITALS: BP 123/68
[2017-12-27 16:08] VITALS: BP 127/72
--- NOTE | 2017-12-27 19:27 | Discharge Summary ---
Discharge Summary Hospital Course Date of Admission Dec 22, 2017 at 07:39 Date of Discharge Admitting Diagnosis JITENDRA Crane is a 62 year old male who was admitted on Dec 22, 2017 at 07:39 for Left Hip Avascular Nephrosis Hospital Course [id number] dictated Discharge Discharge Disposition Patient was discharged to Kemal Pretty MD Dec 27, 2017 19:27
[2017-12-27] MEDS ORDERED: LOVENOX10 M4 SUBQ (19:43)
--- NOTE | 2017-12-27 22:15 | Discharge Summary ---
DATE OF ADMISSION: 12/22/2017 DATE OF DISCHARGE: 12/27/2017 DISCHARGE DIAGNOSES: 1. Avascular necrosis of the hip, now status post left hip total replacement. 2. Pulmonic stenosis, mild. 3. right ventricle. 4. History of renal transplantation, now with residual stage 3 kidney failure. 5. History of liver transplant for cryptogenic cirrhosis. 6. Hypertension. 7. Hyperlipidemia. 8. Nausea and vomiting during the hospitalization. HOSPITAL COURSE: The patient was admitted to the hospital after having a hip replacement by Dr. Deras. He did well over the next few days, transfer medications were resumed. The patient to get DVT prophylaxis with the use of subcutaneous Lovenox treatment. He did relatively well. He ambulated, eventually had bowel movements and is not is ready for discharge home with followup with Dr. Asher and Dr. Deras as well as the liver transplant service as needed. The patient will continue to get Lovenox injection for approximately 10 more days and has instruction for follow up with the doctors as noted above. Kemal Pretty M.D. DR: LAVERN JOB#: [id number] CC:
--- NOTE | 2017-12-28 02:45 | Progress Note ---
DATE: 12/27/2017 ACUTE PAIN MANAGEMENT PHYSICIAN PROGRESS NOTE MEDICATIONS: Medication administration record reviewed. Medications include Ultram, Flomax, Prograf, omeprazole, CellCept, Cozaar, Zetia, Lovenox, Norvasc, and albuterol. LABORATORY STUDIES: From December 25, 2017, shows white count 8, hematocrit 31, and platelets 150,000. Sodium 137; potassium 4.3; chloride 103; bicarbonate 23; BUN 32; creatinine 2.1, which is the patient's baseline; glucose 107; and calcium 8.4. Total bilirubin 0.7. AST 26, ALT 20, and alkaline phosphatase 90. Total protein 6.4. Albumin 3.0. VITAL SIGNS: Within normal limits. Afebrile, pulse 74, respirations 20, blood pressure 123/68, and oxygen saturation 96% on room air. I discussed the case with nurse RN, Carmen. The patient has been progressing well and his pain levels have been adequately controlled on the current analgesic regimen, which include oral oxycodone and the tramadol primarily. I did provide a prescription for both of these agents for outpatient usage. Dr. Pretty has cleared the patient to discharge from a medical standpoint and Dr. Helms agrees with the discharge trial home today. Manohar Christiansen M.D. DR: DEVANTE JOB#: [id number] CC:
== END 2017-12-27 21:30 | disposition home health service (06) | DRG 470 ==
LOC: SDSOVERFLO 12-22 07:39 → 3E 12-22 17:13
PROC: 0SRB04A Replacement of Left Hip Joint with Ceramic on Polyethylene Synthetic Substitute, Uncemented, Open Approach (ICD-10-PCS; principal; 2017-12-22 13:00)
DX: M87.852 Other osteonecrosis, left femur (principal); Z94.0 Kidney transplant status; Z94.4 Liver transplant status; Q22.1 Congenital pulmonary valve stenosis; I12.9 Hypertensive chronic kidney disease with stage 1 through stage 4 chronic kidney disease, or unspecified chronic kidney disease; N18.3 Chronic kidney disease, stage 3 (moderate); E78.5 Hyperlipidemia, unspecified; R11.2 Nausea with vomiting, unspecified; E66.9 Obesity, unspecified; K21.9 Gastro-esophageal reflux disease without esophagitis
CPT/HCPCS: 36415; 72170; 73502; 80048; 80053; 83690; 85025; 86850; 86900; 86901; 86920; 94003; 94150; J2405; J3490